=== PATIENT | female | born 1985 | race Two or more races ===

== ENCOUNTER 2022-05-08 18:38 | Emergency (ER) | payer MEDICAID ==
[~2022-05-08] VITALS: Ht 160 cm; Wt 75.3 kg
[2022-05-08 18:50] VITALS: BP 132/86
--- NOTE | 2022-05-08 19:22 | NUR ---
ASSESSED BY CARTER EVANS
[2022-05-08] MEDS ORDERED: diphenhydrAMINE 50 MG CAP PO ONE (19:30)
[2022-05-08] MEDS ORDERED: DIPH25TA53 PO (19:33)
[2022-05-08] MEDS ORDERED: LORA10TA19 PO (19:33)
--- NOTE | 2022-05-08 19:51 | NUR ---
37 Y/O FEMALE C/O OF BEE STING ON THE LEFT UPPER LIP, STATED THAT THEY TOLD HER WHEN SHE WAS YOUNG THAT SHE WAS ALLERGIC, SATTING AT 99% ON RA, NO SOB NOTED, NO REDNESS OR SWELLING NOTED OTHER THAN THE LIP. PT IS , LMP February ALLERGY: BEES PMH: ASTHMA
[2022-05-08 19:52] VITALS: BP 132/86
--- NOTE | 2022-05-08 19:52 | NUR ---
Patient discharged with v/s stable. Written and verbal after care instructions given and explained. Patient alert, oriented and verbalized understanding of instructions. Ambulatory with steady gait. All questions addressed prior to discharge. ID band removed. Patient advised to follow up with PMD. Rx of BENADRYL AND CLARITIN given. Patient educated on indication of medication including possible reaction and side effects. Opportunity to ask questions provided and answered. VSS
== END 2022-05-08 19:52 | disposition home or self-care (01) ==
LOC: MED 18:38
DX: T63.441A Toxic effect of venom of bees, accidental (unintentional), initial encounter (principal); L25.9 Unspecified contact dermatitis, unspecified cause; R03.0 Elevated blood-pressure reading, without diagnosis of hypertension; Z79.899 Other long term (current) drug therapy; Z91.030 Bee allergy status; Y92.89 Other specified places as the place of occurrence of the external cause
CPT/HCPCS: 99282; Q0163

== ENCOUNTER 2023-07-18 19:22 | Emergency (ER) | payer MEDICAID ==
[~2023-07-18] VITALS: Ht 160 cm; Wt 68.0 kg
[~2023-07-18 19:22] MED LIST: DIPH25TA53 PO; LORA10TA19 PO
[2023-07-18 19:36] VITALS: BP 130/99; PULSE 80; RESP 16; TEMP 97.4; O2SAT 99
[2023-07-18] MEDS ORDERED: NAPR-54 PO (23:39)
== END 2023-07-18 23:42 | disposition home or self-care (01) ==
LOC: MED 19:22
DX: S50.02XA Contusion of left elbow, initial encounter (principal); F15.90 Other stimulant use, unspecified, uncomplicated; Z88.0 Allergy status to penicillin; Z79.899 Other long term (current) drug therapy; X58.XXXA Exposure to other specified factors, initial encounter; Y93.89 Activity, other specified; Y92.89 Other specified places as the place of occurrence of the external cause; Y99.8 Other external cause status
CPT/HCPCS: 73080; 99283